=== PATIENT | female | born 1960 ===

== ENCOUNTER 2021-09-14 14:45 | Outpatient (CLI) | payer BC ==
--- NOTE | 2021-09-14 16:13 | XRAY Report ---
PROCEDURE: Ribs Bilat w/Chest 4 View INDICATIONS: RIB PAIN TECHNIQUE: 3 views of the lower bilateral ribs were acquired, along with a single view chest. COMPARISON: None. FINDINGS: Surgical changes and devices: Surgical clips are seen in the upper abdomen. Bones and chest wall: No acute displaced rib fracture. No suspicious bony lesions. Overlying soft ti ssues appear unremarkable. Lungs and pleura: No pleural effusions or pneumothorax. Lungs appear clear. Mediastinum: Mediastinal contours appear normal. Heart size is normal. IMPRESSION: No acute displaced or fracture. No pneumothorax. Reviewed by: Elroy Gray MD on 09/14/2021 4:11 PM PST Approved by: Elroy Gray MD on 09/14/2021 4:11 PM PST Station ID: [id number]
== END 2021-09-14 14:46 | disposition home or self-care (01) ==
LOC: DI.N 14:45
PROVIDERS: ATTEND Internal Medicine
DX: R07.81 Pleurodynia (principal); Z12.31 Encounter for screening mammogram for malignant neoplasm of breast

== ENCOUNTER 2021-09-14 14:51 | Outpatient (CLI) | payer BC ==
--- NOTE | 2021-09-22 11:46 | Mammography Report ---
BILATERAL DIGITAL SCREENING MAMMOGRAM 3D/2D: 09/14/2021 CLINICAL: Routine screening. No prior exams were available for comparison. There are scattered fibroglandular elements in both br easts. There is a biopsy clip in the right breast. No significant masses, calcifications, or other findings are seen in either breast. IMPRESSION: NEGATIVE There is no mammographic evidence of malignancy. A 1 year screening mammogram is recommended. This exam was interpreted at Station ID: [id number]. NOTE: For mammograms, a report in lay terms will be sent to the patient. Approximately 15% of breast malignancies will not be visualized mammographically. In the management of a palpable breast mass, a negative mammogram must not discourage biopsy of a clinically suspicious lesion. Electronically Signed By: Camila [email or web address]/hill:09/21/2021 10:00:58 ACR BI-RADS Category 1: Negative 3341F PARENCHYMAL PATTERN: (A) - The breast(s) demonstrate(s) scattered fibroglandular densities. BI-RADS CATEGORY: (1) - 1 RECOMMENDATION: (ANNUAL) - Recommend routine annual screening mammography. [id number] 1 year screening LATERALITY: (B)
== END 2021-09-14 14:52 | disposition home or self-care (01) ==
LOC: EDBD → DI.N 14:51
PROVIDERS: ATTEND Internal Medicine
DX: Z12.31 Encounter for screening mammogram for malignant neoplasm of breast (principal)

== ENCOUNTER 2021-09-23 12:18 | Outpatient (CLI) | payer BC ==
[2021-09-23 12:48] LABS: BASOPHILS # (AUTO) 0.1 10^3/uL (0.0-0.1); BASOPHILS % (AUTO) 0.7 %; EOSINOPHILS # (AUTO) 0.2 10^3/uL (0.0-0.7); EOSINOPHILS % (AUTO) 2.3 %; HCT - HEMATOCRIT 45.1 % (37.0-47.0); HGB - HEMOGLOBIN 14.8 g/dL (12.0-16.0); LYMPHOCYTES # (AUTO) 2.5 10^3/uL (1.5-3.5); LYMPHOCYTES % (AUTO) 30.4 %; MEAN CORPUSCULAR HEMOGLOBIN 30.5 pg (27.0-31.0); MEAN CORPUSCULAR HGB CONC 32.8 g/dL (32.0-36.0); MEAN PLATELET VOLUME 10.5 fL (7.9-10.8); MONOCYTES # (AUTO) 0.6 10^3/uL (0.0-1.0); MONOCYTES % (AUTO) 7.2 %; NEUTROPHILS # (AUTO) 4.9 10^3/uL (1.5-6.6); PLT - PLATELET COUNT 295 10^3/uL (130-450); RED BLOOD COUNT 4.85 10^6/uL (4.20-5.40); RED CELL DISTRIBUTION WIDTH 12.7 % (12.0-15.0); WHITE BLOOD COUNT 8.2 x10^3/uL (4.8-10.8)
[2021-09-23 13:09] LABS: ALBUMIN 4.1 g/dL (3.2-5.5); ALBUMIN/GLOBULIN RATIO 1.4 (1.0-2.2); ALKALINE PHOSPHATASE 69 IU/L (42-121); ALT ALANINE AMINOTRANSFERASE 31 IU/L (10-60); AST ASPARTATE AMINOTRANSFERASE 44 IU/L (10-42); BILIRUBIN,TOTAL 0.8 mg/dL (0.2-1.0); BUN - BLOOD UREA NITROGEN 15 mg/dL (6-20); CALCIUM 9.4 mg/dL (8.5-10.3); CARBON DIOXIDE - CO2 27 mmol/L (21-32); CHLORIDE 106 mmol/L (101-111); CHOLESTEROL 163 mg/dL; CREATININE 0.8 mg/dL (0.4-1.0); GFR - MDRD 73 (>89); GLUCOSE 103 mg/dL (70-100); HDL CHOLESTEROL 41 mg/dL; LDL CHOLESTEROL,CALCULATED 101 mg/dL; LDL/HDL RATIO 2.5 (<4.4); POTASSIUM 4.4 mmol/L (3.5-5.0); SODIUM 142 mmol/L (135-145); TRIGLYCERIDES 103 mg/dL; VLDL CHOLESTEROL 21 mg/dL
== END 2021-09-23 12:19 | disposition home or self-care (01) ==
LOC: LAB.R 12:18
PROVIDERS: ATTEND Internal Medicine
DX: C44.91 Basal cell carcinoma of skin, unspecified (principal); C32.9 Malignant neoplasm of larynx, unspecified; I25.10 Atherosclerotic heart disease of native coronary artery without angina pectoris; R03.0 Elevated blood-pressure reading, without diagnosis of hypertension; L40.9 Psoriasis, unspecified; R07.81 Pleurodynia
CPT/HCPCS: 80053; 80061; 83721; 84443; 85025

== ENCOUNTER 2021-11-04 12:09 | Outpatient (CLI) | payer BC ==
--- NOTE | 2021-11-04 14:28 | CT Report ---
PROCEDURE: CT chest without contrast INDICATIONS: Sternal chest pain TECHNIQUE: Noncontrast 1mm axial images were acquired from the pulmonary apices to the posterior costophrenic an gles. Axial 5 mm soft tissue kernel reconstructions were performed as well as 8 mm axial MIP and cor onal and sagittal 5 mm reformations. For radiation dose reduction, the following was used: automate d exposure control, adjustment of mA and/or kV according to patient size. COMPARISON: Conventional x-ray 09/14/2021 FINDINGS: Image quality: Excellent. Lungs and pleura: No acute air space opacities. No pleural effusions or pneumothorax. Central and peripheral airways are patent and normal in caliber. Small right lower lobe calcified granuloma Mediastinum: Heart size is normal. Dense coronary artery vascular calcification present. No pericar dial effusion. No mediastinal adenopathy by size criteria. Thoracic aorta and central pulmonary art eries are normal in size. Esophagus is normal in caliber. No hiatal hernia. Bones and chest wall: No suspicious bony lesions. No vertebral body compression fractures. No axil kristin or supraclavicular adenopathy by size criteria. The thyroid is normal in size and there are no incidental findings. Abdomen: Visualized upper abdominal solid organs and bowel loops appear normal in the absence of con trast. Low-density adrenal nodules measure 2.1 cm left and 1.9 cm on the right. Cholecystectomy clip s. Benign low-density subcentimeter cysts in the right hepatic lobe IMPRESSION: Normal appearance of the sternum. No lytic or blastic lesion. Dense coronary artery vascular calcification. Incidental adrenal adenomas. No follow-up required Reviewed by: Douglas Boyd MD on 11/04/2021 1:27 PM TUAN Approved by: Douglas Boyd MD on 11/04/2021 1:27 PM AKDT Station ID: [id number]
== END 2021-11-04 12:10 | disposition home or self-care (01) ==
LOC: DI 12:09
PROVIDERS: ATTEND Pain Medicine Pain Medicine
DX: R07.89 Other chest pain (principal); I25.10 Atherosclerotic heart disease of native coronary artery without angina pectoris

== ENCOUNTER 2022-10-07 03:32 | Outpatient (CLI) | payer BC | END 2022-10-07 23:59 | disposition critical access hospital (66) | LOC: EMS 03:32 | DX: R07.89 Other chest pain (principal) | CPT/HCPCS: A0425; A0427 ==

== ENCOUNTER 2022-10-07 03:37 | Emergency (ER) | payer BC ==
[2022-10-07] MEDS ORDERED: ONDANSETRON 4 MG/2 ML VIAL IVP STA (03:59)
--- NOTE | 2022-10-07 03:59 | ED Physician Documentation ---
History of Present Illness - Stated complaint Stated Complaint: CHEST PX - Additonal information Additional information: Patient 61-year-old female presenting with chest pain. Reports history of Dyslipidemia for which she takes atorvastatin, chronic rib pain for which she takes oxycodoneAnd coronary artery disease. Reports that she had a heart attack in 2019 in [place]. Follows with Dr. Cruz, cardiology In [place]. Pain woke her from sleep this morning at 0200 hrs. It describes it as a severe crushing chest pain similar to her previous heart attack. Denies history of blood clots, recent hospitalizations or recent travel. Reports that she took "a few" aspirin before coming to the emergency department. Review of Systems Constitutional: denies: Fever Eyes: denies: Loss of vision Ears: denies: Loss of hearing Nose: denies: Rhinorrhea / runny nose Throat: denies: Dental pain / toothache Cardiac: reports: Chest pain / pressure. denies: Palpitations, Pedal edema Respiratory: denies: Dyspnea, Cough, Hemoptysis GI: denies: Abdominal Pain, Nausea, Vomiting, Diarrhea PD PAST MEDICAL HISTORY - Present Medications Home Medications: Ambulatory Orders Medication Instructions Recorded Confirmed Alprazolam [Xanax] 1 mg PO BID 10/07/22 10/07/22 Atorvastatin Calcium [Lipitor] 80 mg PO HS 10/07/22 10/07/22 Metoprolol Succinate [Toprol Xl] 50 mg PO DAILY 10/07/22 10/07/22 buPROPion HCL [Wellbutrin Xl] 300 mg PO DAILY 10/07/22 10/07/22 oxyCODONE/ACET 5/325 Prepack 4 5 mg PO Q6H PRN 10/07/22 10/07/22 [PERCOCET 5 MG/325 MG Prepack 4] - Allergies Allergies/Adverse Reactions: Allergies Allergy/AdvReac Type Severity Reaction Status Date / Time No Known Drug Allergies Allergy Verified 10/07/22 03:56 PD ED PE NORMAL - Vitals Vital signs reviewed: Yes - General General: Alert and oriented X 3 - HEENT HEENT: Atraumatic - Neck Neck: Supple, no meningeal sign - Cardiac Cardiac: RRR, No gallop, Strong equal pulses - Respiratory Respiratory: No respiratory distress, Clear bilaterally - Abdomen Abdomen: Normal bowel sounds - Female Female : Deferred - Rectal Rectal: Deferred - Back Back: No CVA TTP - Derm Derm: Normal color - Extremities Extremities: No deformity - Neuro Neuro: Alert and oriented X 3, per diem registered nurse 2-12 intact, No motor deficit, No sensory deficit, Normal speech Results - Vitals Vitals: Vital Signs - 24 hr 10/07/22 10/07/22 10/07/22 03:47 03:56 04:30 Temperature 36.0 C L Heart Rate 83 85 75 Respiratory 12 14 13 Rate Blood Pressure 128/96 H 128/96 H 123/86 H O2 Saturation 99 99 93 10/07/22 10/07/22 10/07/22 05:00 05:30 06:00 Temperature Heart Rate 70 68 67 Respiratory 13 13 20 Rate Blood Pressure 108/70 106/69 106/72 O2 Saturation 95 95 95 10/07/22 10/07/22 10/07/22 06:30 07:47 08:36 Temperature Heart Rate 70 67 69 Respiratory 15 12 11 L Rate Blood Pressure 112/75 125/78 122/81 H O2 Saturation 96 99 100 10/07/22 10/07/22 10/07/22 09:23 10:44 11:47 Temperature Heart Rate 77 62 58 L Respiratory 12 13 14 Rate Blood Pressure 148/88 H 138/91 H 109/79 O2 Saturation 98 97 96 10/07/22 12:04 Temperature 36.9 C Heart Rate 66 Respiratory 12 Rate Blood Pressure 130/92 H O2 Saturation 97 Oxygen O2 Source Room air - EKG (time done) 0347 EKG releavant findings:: EKG personally interpreted by author of this note. Relevant findings are: Sinus rhythm with rate 88 bpm. Normal axis. Normal NH, QRS, QTc intervals. No ST segment elevations or T wave inversions. Minimal ST depressions noted in randy d V3. No previous EKG available for comparison. - Labs Labs: Laboratory Tests 10/07/22 10/07/22 10/07/22 04:10 04:10 04:10 WBC 9.8 RBC 4.48 Hgb 13.5 Hct 41.3 MCV 92.2 MCH 30.1 MCHC 32.7 RDW 12.0 Plt Count 311 MPV 9.3 Neut # (Auto) 5.2 Lymph # (Auto) 3.3 Prentiss # (Auto) 0.9 Eos # (Auto) 0.3 Baso # (Auto) 0.1 Absolute Nucleated RBC 0.00 Nucleated RBC % 0.0 D-Dimer 210.3 Sodium 141 Potassium 3.8 Chloride 106 Carbon Dioxide 26 Anion Gap 9.0 BUN 17 Creatinine 0.7 Estimated GFR (MDRD) 85 L Glucose 117 H Calcium 9.2 Total Bilirubin < 0.2 L AST 35 ALT 27 Alkaline Phosphatase 63 Troponin I High Sens Total Protein 6.7 Albumin 3.7 Globulin 3.0 Albumin/Globulin Ratio 1.2 Lipase 123 H 10/07/22 10/07/22 10/07/22 04:10 06:40 11:06 WBC RBC Hgb Hct MCV MCH MCHC RDW Plt Count MPV Neut # (Auto) Lymph # (Auto) Prentiss # (Auto) Eos # (Auto) Baso # (Auto) Absolute Nucleated RBC Nucleated RBC % D-Dimer Sodium Potassium Chloride Carbon Dioxide Anion Gap BUN Creatinine Estimated GFR (MDRD) Glucose Calcium Total Bilirubin AST ALT Alkaline Phosphatase Troponin I High Sens 27.0 H* 119.9 H* 473.8 H* Total Protein Albumin Globulin Albumin/Globulin Ratio Lipase PD Medical Decision Making - ED course Complexity details: reviewed old records, reviewed results, d/w patient ED course: Patient 61-year-old female with known history of coronary artery disease presented to the emergency department with chest pain. Afebrile, hemodynamically stable and arrival to the emergency department. Initial EKG with minimal new onset ST depression in V3 but no acute changes from baseline. Initial high-sensitivity troponin was 27. D-dimer negative. Chest x-ray nonacute. Patient reported taking aspirin prior to arrival. Was given dose hydromorphone for symptomatic management. Repeat troponin is pending. At this time will be signing out to the oncoming physician, please see their documentation for further detail. Departure - Departure Disposition: 02 Transfer Acute Care Hosp Clinical Impression: NSTEMI (non-ST elevated myocardial infarction) Condition: Serious Discharge Date/Time: 10/07/22 13:00
[2022-10-07 04:16] LABS: BASOPHILS # (AUTO) 0.1 10^3/uL (0.0-0.1); BASOPHILS % (AUTO) 0.8 %; EOSINOPHILS # (AUTO) 0.3 10^3/uL (0.0-0.7); EOSINOPHILS % (AUTO) 3.3 %; HCT - HEMATOCRIT 41.3 % (37.0-47.0); HGB - HEMOGLOBIN 13.5 g/dL (12.0-16.0); LYMPHOCYTES # (AUTO) 3.3 10^3/uL (1.5-3.5); LYMPHOCYTES % (AUTO) 33.8 %; MEAN CORPUSCULAR HEMOGLOBIN 30.1 pg (27.0-31.0); MEAN CORPUSCULAR HGB CONC 32.7 g/dL (32.0-36.0); MEAN CORPUSCULAR VOLUME 92.2 fL (81.0-99.0); MEAN PLATELET VOLUME 9.3 fL (7.9-10.8); MONOCYTES # (AUTO) 0.9 10^3/uL (0.0-1.0); MONOCYTES % (AUTO) 9.1 %; NEUTROPHILS # (AUTO) 5.2 10^3/uL (1.5-6.6); NEUTROPHILS % (AUTO) 52.6 %; PLT - PLATELET COUNT 311 10^3/uL (130-450); RED BLOOD COUNT 4.48 10^6/uL (4.20-5.40); WHITE BLOOD COUNT 9.8 x10^3/uL (4.8-10.8)
[2022-10-07] MEDS: HYDROmorphone 1 MG/ML CARPUJECT IVP PRN ×2 (04:25→11:49)
[2022-10-07 04:30] LABS: ALBUMIN 3.7 g/dL (3.2-5.5); ALBUMIN/GLOBULIN RATIO 1.2 (1.0-2.2); ALKALINE PHOSPHATASE 63 IU/L (42-121); ALT ALANINE AMINOTRANSFERASE 27 IU/L (10-60); AST ASPARTATE AMINOTRANSFERASE 35 IU/L (10-42); BILIRUBIN,TOTAL < 0.2 mg/dL (0.2-1.0); BUN - BLOOD UREA NITROGEN 17 mg/dL (6-20); CALCIUM 9.2 mg/dL (8.5-10.3); CARBON DIOXIDE - CO2 26 mmol/L (21-32); CHLORIDE 106 mmol/L (101-111); CREATININE 0.7 mg/dL (0.4-1.0); GFR - MDRD 85 (>89); GLUCOSE 117 mg/dL (70-100); LIPASE 123 U/L (22-51); POTASSIUM 3.8 mmol/L (3.5-5.0); SODIUM 141 mmol/L (135-145); TOTAL PROTEIN 6.7 g/dL (6.7-8.2)
--- NOTE | 2022-10-07 08:08 | XRAY Report ---
PROCEDURE: Chest 1 View X-Ray INDICATIONS: chest pain TECHNIQUE: One view of the chest was acquired. COMPARISON: None. FINDINGS: Surgical changes and devices: None. Lungs and pleura: No pleural effusions or pneumothorax. Lungs are clear. Mediastinum: Mediastinal contours appear normal. Heart size is normal. Bones and chest wall: No suspicious bony lesions. Overlying soft tissues appear unremarkable. IMPRESSION: No acute process. Reviewed by: Heraclio Armstrong MD on 10/07/2022 8:07 AM PDT Approved by: Heraclio Armstrong MD on 10/07/2022 8:07 AM PDT Station ID: [id number]
[2022-10-07] MEDS ORDERED: METOPROLOL TARTRATE 50 MG TABLET PO STA (08:51)
[2022-10-07] MEDS ORDERED: METOPROLOL 5 MG/5 ML VIAL IVP STA (08:51)
[2022-10-07] MEDS ORDERED: NITROGLYCERIN SL 0.4 MG TABLET SL STA (08:51)
[2022-10-07] MEDS ORDERED: HEPARIN 25000UNITS/500ML (D5W) 25,000 UNIT/500 ML BAG IV SCH (09:00)
[2022-10-07 12:05] VITALS: BP 130/92
--- NOTE | 2022-10-07 12:36 | ED Physician Documentation ---
ED Addendum - Addendum Addendum: 10/07/22 12:32 This patient was signed out to me at change of shift by Dr. Puente, pending repeat troponin and final disposition. The patient had presented with an episode of central chest tightness which awakened her from sleep around 2:00 this morning and has persisted to some degree since. She had not had any associated symptoms such as shortness of breath, nausea, or diaphoresis, and had not experienced radiation of the pain. However, when I did go to evaluate her myself, she did report that the symptoms were very much similar to when she had had an CA in 2019. The patient does also have GERD though she states that this episode felt different than that and more consistent with her prior cardiac event. The patient reported to me that she had had an LAD stent placed in [place] in 2019. She has become established with Dr. Cruz of cardiology in [place] since moving here and had a stress test a few months ago which looked good. The patient denies any recent dyspnea on exertion. She had initial relief of her pain with nitroglycerin and Dilaudid earlier, but states that her pain is beginning to creep back. She has taken aspirin daily and also, is on metoprolol and Lipitor. She is not on any other anticoagulation. No other complaints at this time. The patient's repeat troponin did come back significantly elevated over her initial troponin of 27. Her EKG upon arrival had been normal. I spoke with Dr. Camacho who is Dr. Cruz's partner and he stated that he would speak with the fitter machinist, as he felt the patient would likely need catheterization. Patient was started on a heparin drip and was given doses of metoprolol here in the emergency department. She had already taken aspirin this morning. She was given another sublingual dose of nitroglycerin as well as a nitro paste application and this did seem to improve her pain quite a bit. We spoke with [facility] and were informed that Dr. Singh had Officially excepted the patient for transfer. Patient was agreeable to this plan, And was stable at the time of transfer. Final impression: 1. Non-ST elevation CA Disposition: Transfer to acute care hospital in serious condition. 10/07/22 12:36
== END 2022-10-07 13:00 | disposition short-term general hospital (02) ==
LOC: EDUNIT# → ED 03:37
DX: I21.4 Non-ST elevation (NSTEMI) myocardial infarction (principal)
CPT/HCPCS: 36415; 71045; 80053; 83690; 84484; 85025; 85379; 93005; 96365; 96366; 96375; 96376; 99285; A9270; J1170

== ENCOUNTER 2022-10-07 13:01 | Outpatient (CLI) | payer BC | END 2022-10-07 23:59 | disposition short-term general hospital (02) | LOC: EMS 13:01 | PROVIDERS: ATTEND Emergency Medicine | DX: I21.4 Non-ST elevation (NSTEMI) myocardial infarction (principal) | CPT/HCPCS: A0425; A0426 ==

== ENCOUNTER 2023-03-10 00:38 | Emergency (ER) | payer BC ==
--- NOTE | 2023-03-10 01:00 | ED Physician Documentation ---
History of Present Illness - Stated complaint Stated Complaint: L FACE PX - Chief complaint Chief Complaint: Heent PD PAST MEDICAL HISTORY - Past Medical History Cardiovascular: [place] Psych: Anxiety - Past Surgical History Past Surgical History: Yes Cardiovascular: Coronary stent - Present Medications Home Medications: Ambulatory Orders Medication Instructions Recorded Confirmed Alprazolam [Xanax] 1 mg PO BID 10/07/22 10/07/22 Atorvastatin Calcium [Lipitor] 80 mg PO HS 10/07/22 10/07/22 Metoprolol Succinate [Toprol Xl] 50 mg PO DAILY 10/07/22 10/07/22 buPROPion HCL [Wellbutrin Xl] 300 mg PO DAILY 10/07/22 10/07/22 oxyCODONE/ACET 5/325 Prepack 4 5 mg PO Q6H PRN 10/07/22 10/07/22 [PERCOCET 5 MG/325 MG Prepack 4] Chlorhexidine [Peridex] 15 ml PO BID 03/10/23 03/10/23 Gabapentin 400 mg PO 03/10/23 03/10/23 LORazepam [Ativan] 1 mg PO ONCE 03/10/23 03/10/23 Pantoprazole [Protonix] 40 mg PO 03/10/23 - Allergies Allergies/Adverse Reactions: Allergies Allergy/AdvReac Type Severity Reaction Status Date / Time amitriptyline Allergy Unknown Verified 03/10/23 00:49 nitroglycerin Allergy Unknown Verified 03/10/23 00:49 [From Nitro-Bid] - Social History Does the pt smoke?: No Smoking Status: Never smoker Does the pt drink ETOH?: No Does the pt have substance abuse?: Yes - Immunizations Immunizations are current?: Yes - POLST Patient has POLST: No Results - Vitals Vitals: Vital Signs - 24 hr 03/10/23 03/10/23 00:44 04:40 Temperature 36.7 C 36.0 C L Heart Rate 97 86 Respiratory 16 16 Rate Blood Pressure 139/96 H 105/70 O2 Saturation 97 98 Oxygen O2 Source Room air PD Medical Decision Making - ED course ED course: SEE PAPER CHART ([employer] DOWNTIME) Departure - Departure Disposition: 01 Home, Self Care Clinical Impression: Neuralgic facial pain Condition: Good Instructions: ED Neuralgia Trigeminal Forms: PCP List Discharge Date/Time: 03/10/23 04:40
[2023-03-10] MEDS ORDERED: SUMAtriptan 6 MG/0.5 ML VIAL SUBQ ONE (01:49)
[2023-03-10] MEDS ORDERED: HYDROmorphone 1 MG/ML CARPUJECT ONE (01:49)
[2023-03-10 05:23] VITALS: BP 105/70; O2SAT 98
== END 2023-03-10 04:40 | disposition home or self-care (01) ==
LOC: ED 00:38
DX: G50.0 Trigeminal neuralgia (principal)
CPT/HCPCS: 96372; 99283; J1170

== ENCOUNTER 2023-04-03 00:28 | Emergency (ER) | payer BC ==
[2023-04-03 01:09] VITALS: BP 110/63; O2SAT 97
[2023-04-03] MEDS: LIDOCAINE PATCH 5% TOP STA (01:23)
[2023-04-03] MEDS: methocarbamoL 500 MG TABLET PO STA (01:23)
[2023-04-03] MEDS: KETOROLAC 30 MG/ML VIAL IM STA (01:24)
--- NOTE | 2023-04-03 01:35 | ED Physician Documentation ---
History of Present Illness - Stated complaint Stated Complaint: RT SHOULDER PX - Chief complaint Chief Complaint: Ext Problem - History obtained from History obtained from: Patient - History of Present Illness Timing: Prior to arrival - Additonal information Additional information: 62-year-old female presents for evaluation of right shoulder pain and neck pain that woke her up from sleep. Pain is aching, worse with movement. No medications taken prior to arrival. Patient states that she has had a heart attack in the past and she is concerned that her neck pain may be heart related. She also notices that since she got to the ER her R hip and R knee have had similar pain. Denies trauma Review of Systems Constitutional: denies: Fever, Chills Cardiac: denies: Chest pain / pressure, Palpitations, Calf pain Respiratory: denies: Dyspnea, Cough, Wheezing GI: denies: Abdominal Pain, Nausea, Vomiting, Constipation, Diarrhea Skin: denies: Rash, Lesions, Abrasion (s) Musculoskeletal: reports: Neck pain, Joint pain. denies: Back pain, Extremity pain, Extremity swelling, Joint swelling Neurologic: denies: Generalized weakness, Focal weakness, Numbness PD PAST MEDICAL HISTORY - Past Medical History Cardiovascular: [place] Psych: Anxiety - Past Surgical History Past Surgical History: Yes Cardiovascular: Coronary stent - Present Medications Home Medications: Ambulatory Orders Medication Instructions Recorded Confirmed Alprazolam [Xanax] 1 mg PO BID 10/07/22 04/03/23 Atorvastatin Calcium [Lipitor] 80 mg PO HS 10/07/22 04/03/23 Metoprolol Succinate [Toprol Xl] 50 mg PO DAILY 10/07/22 04/03/23 buPROPion HCL [Wellbutrin Xl] 300 mg PO DAILY 10/07/22 04/03/23 Gabapentin 1 - 2 tab PO TID 03/10/23 04/03/23 Pantoprazole [Protonix] 40 mg PO DAILY 03/10/23 04/03/23 Oxycodone HCl/Acetaminophen 1 each PO TID PRN 04/03/23 04/03/23 [Oxycodone-Acetaminophen 5-325] methocarbamoL [Robaxin] 500 mg PO Q6H #20 tablet 04/03/23 - Allergies Allergies/Adverse Reactions: Allergies Allergy/AdvReac Type Severity Reaction Status Date / Time amitriptyline Allergy Unknown Verified 04/03/23 00:51 nitroglycerin Allergy Unknown Verified 04/03/23 00:51 [From Nitro-Bid] - Social History Does the pt smoke?: No Smoking Status: Never smoker Does the pt drink ETOH?: No Does the pt have substance abuse?: Yes - Immunizations Immunizations are current?: Yes - POLST Patient has POLST: No PD ED PE NORMAL - Vitals Vital signs reviewed: Yes - General General: Alert and oriented X 3, No acute distress, Well developed/nourished - HEENT HEENT: Atraumatic - Neck Neck: Supple, no meningeal sign - Cardiac Cardiac: RRR, No murmur, Strong equal pulses - Abdomen Abdomen: Soft, Non tender, Non distended - Back Back: No CVA TTP, No spinal TTP - Derm Derm: Normal color, Warm and dry, No rash - Extremities Extremities: No deformity, No tenderness to palpate, Normal ROM s pain, No edema, Other (R trapezius muscle spasm. Tenderness along strap muscles of R neck. Pain along R hip/leg with figure 4 stretch motion) - Neuro Neuro: Alert and oriented X 3, shelf stocker 2-12 intact, No motor deficit, Normal speech - Psych Psych: Normal mood, Normal affect Results - Vitals Vitals: Vital Signs - 24 hr 04/03/23 00:47 Temperature 36.8 C Heart Rate 73 Respiratory 16 Rate Blood Pressure 110/63 O2 Saturation 97 Oxygen O2 Source Room air PD Medical Decision Making - ED course Complexity details: considered differential, d/w patient ED course: Reproducible neck, shoulder, and leg pain. Palpable spasm along trapezius muscle. Patient counseled on appropriate stretching maneuvers for pain. Given a nti-inflammatory, muscle relaxer. Pain medication sent to pharmacy of choice. Departure - Departure Disposition: 01 Home, Self Care Clinical Impression: Muscle spasm Shoulder pain Qualifiers: Chronicity: acute Laterality: right Qualified Code(s): M25.511 - Pain in right shoulder Condition: Stable Instructions: ED Strain Muscle Ext Prescriptions: methocarbamoL [Robaxin] 500 mg PO Q6H #20 tablet Forms: PCP List Discharge Date/Time: 04/03/23 01:37
== END 2023-04-03 01:37 | disposition home or self-care (01) ==
LOC: ED 00:28
DX: M25.511 Pain in right shoulder (principal); M62.838 Other muscle spasm; Z79.899 Other long term (current) drug therapy
CPT/HCPCS: 96372; 99283